=== PATIENT | female | born 1970 | race Caucasian/White ===

== ENCOUNTER 2016-10-02 16:01 | Emergency (ER) | payer BC, OTHER ==
--- NOTE | 2016-10-02 16:05 | PDOC ---
Rapid Medical Evaluation Time Seen by Provider: 10/02/16 16:02 Medical Evaluation: Allergies Allergy/AdvReac Type Severity Reaction Status Date / Time Penicillins Allergy Verified 10/02/16 16:02 10/02/16 16:03 I have performed a brief in-person evaluation of this patient. The patient presents with a chief complaint of: rt back pain radiating down rt leg x 2 days. went to urgent care clinic who gave medications with minimal relief. Hx sciatica w/ similar discomfort Pertinent physical exam findings: vss. ambulatory. I have ordered the following: none The patient will proceed to fast track for further evaluation.
[2016-10-02 16:06] VITALS: BP 156/49; PULSE 69; TEMP 97.4; BMI 35.9
[2016-10-02] MEDS ORDERED: KETOROLAC TROMETHAMINE 60 MG/2 ML VIAL IM ONE (16:41)
--- NOTE | 2016-10-02 16:52 | PDOC ---
History of Present Illness - General Chief Complaint: Back Pain Stated Complaint: BACK PAIN Time Seen by Provider: 10/02/16 16:02 History Source: Patient Exam Limitations: No Limitations - History of Present Illness Initial Comments: 10/02/16 16:45 45 yr female history of low back pain with sciatica right side states the past 6 days after cleaning and sweeping has low back pain that is not improving with medrol dose pack and skelaxin. Pt denies urine or bowel dysfunction no leg numbness or tingling. Pt is ambulatory. no abd pain no diarrhea. Severity: reports: mild Pain Location: reports: back Modifying Factors: improves with: None Loss of Consciousness: no loss of consciousness Associated Symptoms (Fall): denies symptoms Past History - Past Medical History Allergies/Adverse Reactions: Allergies Allergy/AdvReac Type Severity Reaction Status Date / Time Penicillins Allergy Verified 10/02/16 16:02 Home Medications: Ambulatory Orders Diazepam [Valium] 2 mg PO TID PRN #12 tablet MDD 6mg 10/02/16 Metaxalone [Skelaxin] 400 mg PO HS 10/02/16 Methylprednisolone [Medrol Dose Wes] 4 mg PO ASDIR 10/02/16 Oxycodone HCl/Acetaminophen [Percocet 5-325 mg Tablet] 1 tab PO Q6H PRN #8 tablet MDD 4 10/02/16 Diabetes: Yes HTN: Yes - Psycho/Social/Smoking Cessation Hx Anxiety: No Suicidal Ideation: No Smoking History: Never smoked Have you smoked in the past 12 months: No Information on smoking cessation initiated: No Hx Alcohol Use: No Drug/Substance Use Hx: No Substance Use Type: None Trauma Specific PMHX - Complaint Specific PMHX Arthritis: No Back Injury: No Neck Injury: No Hx Sacro Iliac Joint Dysfunction: No Review of Systems - Review of Systems Able to Perform ROS?: Yes Is the patient limited Russian proficient: No Constitutional: No: Symptoms Reported HEENTM: No: Symptoms Reported Respiratory: No: Symptoms reported Cardiac (ROS): No: Symptoms Reported ABD/GI: No: Symptoms Reported : No: Symptoms Reported Musculoskeletal: Yes: See HPI, Back Pain *Physical Exam - Vital Signs Last Vital Signs Temp Pulse Resp BP Pulse Ox 97.4 F L 69 18 156/49 100 10/02/16 16:03 10/02/16 16:03 10/02/16 16:03 10/02/16 16:03 10/02/16 16:03 - Physical Exam General Appearance: Yes: Nourished, Appropriately Dressed HEENT: positive: EOMI, LATOSHA Neck: positive: Supple. negative: Tender Respiratory/Chest: positive: Lungs Clear, Normal Breath Sounds Cardiovascular: positive: Regular Rhythm, Regular Rate Gastrointestinal/Abdominal: positive: Normal Bowel Sounds, Soft. negative: Tender Lymphatic: negative: Adenopathy Musculoskeletal: positive: Normal Inspection, Other (point tenderness to right buttock ) Extremity: positive: Normal Capillary Refill, Normal Inspection, Normal Range of Motion Integumentary: positive: Normal Color, Dry, Warm Neurologic: positive: Fully Oriented, Alert, Normal Mood/Affect, Normal Response , Motor Strength 5/5 ED Treatment Course - RADIOLOGY Radiology Studies Ordered: Category Date Time Status SPINE-LUMBAR ONLY [RAD] Stat Radiology 10/02/16 16:42 Ordered Medical Decision Making - Medical Decision Making 10/02/16 16:49 cc: lower back pain for one week radiates to right buttock and down leg pain with sitting to standing nv intact no saddle anesthesia no numbness or tingling to legs will get xray ua toradol valium refer to Dr. Fragoso 10/02/16 16:54 ua is negative no evidence of blood or infection wet read is negative for fracture will notify pt if any changes when the radiologist reads the xray . pt states she feels better after toradol. pt has steady gait. 10/02/16 18:03 10/02/16 18:04 *DC/Admit/Observation/Transfer Diagnosis at time of Disposition: Sciatica Qualifiers: Laterality: right Qualified Code(s): M54.31 - Sciatica, right side - Discharge Dispostion Disposition: HOME Condition at time of disposition: Good - Prescriptions Prescriptions: Oxycodone HCl/Acetaminophen [Percocet 5-325 mg Tablet] 1 tab PO Q6H PRN #8 tablet MDD 4 PRN Reason: Severe Pain Diazepam [Valium] 2 mg PO TID PRN #12 tablet MDD 6mg PRN Reason: Muscle Spasms - Referrals Referrals: Angeline Mcnally MD [Primary Care Provider] - Mitchel Fragoso MD [Staff Physician] - - Patient Instructions Additional Instructions: take the valium as directed for muscle spasm take percocet for SEVERE pain as needed otherwise you can take motrin 800mg every 6hrs (over the counter ) for pain with the valium DO NOT TAKE VALIUM AND PERCOCET TOGETHER, DO NOT TAKE SKELAXIN IF YOU TAKE VALIUM AND PERCOCET apply warm compresses to lower back as needed every 3hrs for 20 minutes follow with the orthopedist Dr. Fragoso for follow up
[2016-10-02] MEDS ORDERED: KETOROLAC TROMETHAMINE 60 MG/2 ML VIAL ONE (17:11)
[2016-10-02 17:39] LABS: URINE APPEARANCE CLEAR; URINE BILIRUBIN NEGATIVE (NEGATIVE); URINE BLOOD NEGATIVE (NEGATIVE); URINE COLOR STRAW; URINE GLUCOSE (UA) NEGATIVE (NEGATIVE); URINE KETONE NEGATIVE (NEGATIVE); URINE LEUK ESTERASE NEGATIVE (NEGATIVE); URINE NITRITE NEGATIVE (NEGATIVE); URINE PROTEIN NEGATIVE (NEGATIVE); URINE UROBILINOGEN NEGATIVE E.U./dl (0.2-1.0)
[2016-10-02] MEDS ORDERED: diazePAM 2 MG TABLET PO ONE (17:58)
[2016-10-02] MEDS ORDERED: diazePAM 2 MG TABLET ONE (18:00)
== END 2016-10-02 18:01 | disposition home or self-care (01) ==
LOC: JERFT 16:01
PROC: 3E0233Z Introduction of Anti-inflammatory into Muscle, Percutaneous Approach (ICD-10-PCS; principal; 2016-10-02)
DX: M54.41 Lumbago with sciatica, right side (principal)
CPT/HCPCS: 72100-TC; 81003; 84703; 99281-25

== ENCOUNTER 2018-10-21 18:47 | Emergency (ER) | payer BC, OTHER ==
[2018-10-21] MEDS ORDERED: ACETAMINOPHEN 500 MG TABLET (FP) PO ONE ×2 (18:51→20:29)
--- NOTE | 2018-10-21 18:51 | PDOC ---
Rapid Medical Evaluation Time Seen by Provider: 10/21/18 18:49 Medical Evaluation: Allergies Allergy/AdvReac Type Severity Reaction Status Date / Time Penicillins Allergy Verified 10/02/16 16:02 10/21/18 18:49 I have performed a brief in-person evaluation of this patient. The patient presents with a chief complaint of: L sided headache x 2 weeks worse today relieved with Advil last night Pertinent physical exam findings:No gross deficits I have ordered the following:U preg and Tylenol The patient will proceed to the ED for further evaluation. Discharge Disposition - Diagnosis Headache - Referrals - Patient Instructions - Post Discharge Activity
[2018-10-21 18:55] VITALS: BMI 34.8
[2018-10-21] MEDS ORDERED: LABETALOL HCL 100 MG TABLET (FP) PO ONE (19:53)
--- NOTE | 2018-10-21 19:59 | PDOC ---
History of Present Illness - General Chief Complaint: Blood Pressure Problem Stated Complaint: HEADACE/SINCE ONE WEEK AGO Time Seen by Provider: 10/21/18 18:49 History Source: Patient Exam Limitations: No Limitations - History of Present Illness Initial Comments: 10/21/18 19:55 HISTORY OF PRESENT ILLNESS: 47-year-old woman past medical history of hypertension and MS who presents to the emergency department for evaluation of left-sided headache which has been waxing and waning over the past 7 days. Patient reports the pain comes on gradually with slow crescendo maxing out at 7/ 10. Patient has been taking ibuprofen which has helped alleviate the headache. Patient reports she ran out of her antihypertensives approximately one month ago. Patient is contact her primary doctor who gave her a prescription to continue her medications until follow-up next week. Patient reports she's been taking her medicines daily as prescribed. She denies any blurry vision, dizziness, nausea, vomiting, chest pain, shortness of breath, leg swelling. No recent travel or sick contacts. PAST MEDICAL HISTORY: see HPI SURGICAL HISTORY: Denies ALLERGIES: PCN REVIEW OF SYSTEMS General/Constitutional: Denies fever or chills. Denies weakness, weight change. HEENT: Denies change in vision. Denies ear pain or discharge. Denies sore throat. Cardiovascular: Denies chest pain or shortness of breath. Respiratory: Denies cough, wheezing, or hemoptysis. Gastrointestinal: Denies nausea, vomiting, diarrhea or constipation. Denies rectal bleeding. Genitourinary: Denies dysuria, frequency, or change in urination. Musculoskeletal: Denies joint or muscle swelling or pain. Denies neck or back pain. Skin and breasts: Denies rash or easy bruising. Neurologic: see HPI Psychiatric: Denies depression or anxiety. Endocrine: Denies increased thirst. Denies abnormal weight change. Hematologic/Lymphatic: Denies anemia, easy bleeding, or history of blood clots. Allergic/Immunologic: Denies hives or skin allergy. Denies latex allergy. PHYSICAL EXAM General Appearance: Well-appearing, appropriately dressed. No apparent distress , no intoxication. HEENT: EOMI, PERRLA, normal ENT inspection, normal voice, TMs normal, pharynx normal. No conjunctival pallor. No photophobia, scleral icterus. Neck: Supple. Trachea midline. No tenderness, rigidity, carotid bruit, stridor , lymphadenopathy, or thyromegaly. Respiratory/Chest: Lungs CTAB. No shortness of breath, chest tenderness, respiratory distress, accessory muscle use. No crackles, rales, rhonchi, stridor , wheezing, dullness Cardiovascular: RRR. S1, S2. No JVD, murmur, bradycardia, tachycardia. Vascular Pulses: Dorsalis-Pedis (R): 2+, Dorsalis-Pedis (L): 2+ Gastrointestinal/Abdominal: Normal bowel sounds. Abdomen soft, non-distended. No tenderness or rebound tenderness. No organomegaly, pulsatile mass, guarding, hernia, hepatomegaly, splenomegaly. Lymphatic: No adenopathy, tenderness. Musculoskeletal/Extremities: Normal inspection. FAROM of all extremities, normal capillary refill. Pelvis Stable. No CVA tenderness. No tenderness to extremities, pedal edema, swelling, erythema or deformity. Integumentary: Appropriate color, dry, warm. No cyanosis, erythema, jaundice or rash Neurologic: telegraphic service dispatcher II-XII intact. Fully oriented, alert. Appropriate mood/affect. Motor strength 5/5. No appreciable EOM palsy, facial droop or sensory deficit. Gait steady. Past History - Past Medical History Allergies/Adverse Reactions: Allergies Allergy/AdvReac Type Severity Reaction Status Date / Time Penicillins Allergy Verified 10/21/18 18:50 Home Medications: Ambulatory Orders Lisinopril [Prinivil] 10 mg PO DAILY 10/21/18 Diabetes: Yes HTN: Yes - Suicide/Smoking/Psychosocial Hx Smoking History: Never smoked Have you smoked in the past 12 months: No Hx Alcohol Use: No Drug/Substance Use Hx: No Substance Use Type: None *Physical Exam - Vital Signs Last Vital Signs Temp Pulse Resp BP Pulse Ox 98.4 F 78 18 192/74 H 100 10/21/18 18:51 10/21/18 18:51 10/21/18 18:51 10/21/18 18:51 10/21/18 18:51 Moderate Sedation - Procedure Monitoring Vital Signs: Procedure Monitoring Vital Signs Temperature 98.4 F 10/21/18 18:51 Pulse Rate 78 10/21/18 18:51 Respiratory Rate 18 10/21/18 18:51 Blood Pressure 192/74 H 10/21/18 18:51 O2 Sat by Pulse Oximetry (%) 100 10/21/18 18:51 ED Treatment Course - LABORATORY CBC & Chemistry Diagram: 10/21/18 20:42 10/21/18 21:17 Medical Decision Making - Medical Decision Making 10/21/18 19:59 A/P: 47-year-old woman with intermittent headaches for one week Blood pressure 192/74 upon arrival EKG Labs including cardiac profile and ESR Urine CT of the head Labetalol 100 mg orally now 10/21/18 23:47 CT of the head as read by Dr. Garcia: No CT evidence of acute intracranial pathology. ESR 7 Random glucose 277. 2+ glucose noted in the urine. Patient informed of these results and told she may be diabetic. Patient reports she is supposed to be taking metformin but does so intermittently. Patient counseled on the importance of treating diabetes and she has verbalized understanding to continue taking her medication. Patient was instructed to discuss with her primary doctor for evaluation going forward. Patient's blood pressure is 138/74. She denies pain at this time. I discussed the physical exam findings, ancillary test results and final diagnoses with the patient. I answered all of the patient's questions. The patient was satisfied with the care received and felt comfortable with the discharge plan and treatment plan. The patient will call their primary care physician within 24 hours to arrange follow-up and will return to the Emergency Department with any new, persistent or worsening symptoms. *DC/Admit/Observation/Transfer Diagnosis at time of Disposition: Headache Qualifiers: Headache type: unspecified Headache chronicity pattern: acute headache Intractability: not intractable Qualified Code(s): R51 - Headache Hypertension Qualifiers: Hypertension type: essential hypertension Qualified Code(s): I10 - Essential ( primary) hypertension - Discharge Dispostion Disposition: HOME Condition at time of disposition: Fair Decision to Admit order: No - Referrals - Patient Instructions Printed Discharge Instructions: DI for High Blood Pressure Additional Instructions: Take Tylenol or Motrin as needed for headaches. Keep a diary of all food to eat and activities performed prior to headaches starting. Make an appointment with your primary doctor for reevaluation within the next week. Return to emergency department for worsening headache, blurry vision, dizziness , nausea, vomiting or any other concerns. Thank you very much for for choosing us to provide emergent health care needs. - Post Discharge Activity Forms/Work/School Notes: Back to Work
[2018-10-21 20:23] LABS: PH,URINE 6.5 (5.0-8.0); URINE APPEARANCE CLEAR; URINE BILIRUBIN NEGATIVE (<2.0 mg/dL); URINE COLOR YELLOW; URINE GLUCOSE (UA) 2+ (NEGATIVE); URINE KETONE NEGATIVE (NEGATIVE); URINE LEUK ESTERASE NEGATIVE (NEGATIVE); URINE NITRITE NEGATIVE (NEGATIVE); URINE PROTEIN NEGATIVE (NEGATIVE); URINE UROBILINOGEN 0.2 mg/dL (0.2-1.0)
[2018-10-21] MEDS ORDERED: LABETALOL HCL 100 MG TABLET (FP) ONE (20:25)
[2018-10-21] MEDS ORDERED: ACETAMINOPHEN 325 MG TABLET (FP) ONE (20:25)
[2018-10-21 20:52] LABS: EOS % 1.7 % (0-4.5); HEMATOCRIT 42.4 % (32.4-45.2); LYMPH % 24.8 % (8-40); MEAN CELL VOLUME 78.8 fl (80-96); MEAN PLT VOLUME 10.4 fl (7.5-11.1); MONO % 4.9 % (3.8-10.2); NEUT % 67.6 % (42.8-82.8); PLATELET COUNT 356 K/MM3 (134-434); RBC 5.38 M/mm3 (3.60-5.2); RDW 16.6 % (11.6-15.6); WHITE BLOOD COUNT 10.3 K/mm3 (4.0-10.0)
[2018-10-21 21:49] LABS: ALBUMIN 3.8 g/dl (3.4-5.0); ALK PHOS 92 U/L (45-117); ANION GAP 9 MMOL/L (8-16); BILIRUBIN,TOTAL 0.4 mg/dL (0.2-1); BLOOD UREA NITROGEN 11 mg/dL (7-18); CALCIUM 8.8 mg/dL (8.5-10.1); CHLORIDE 99 mmol/L (98-107); CO2 25 mmol/L (21-32); CREATININE 0.9 mg/dL (0.55-1.3); GLUCOSE,RANDOM 277 mg/dL (74-106); POTASSIUM 4.1 mmol/L (3.5-5.1); SGOT/AST 22 U/L (15-37); SGPT/ALT 37 U/L (13-61); SODIUM 133 mmol/L (136-145); TOT PROT 7.2 g/dl (6.4-8.2)
[2018-10-21 22:56] VITALS: BP 138/74; PULSE 68; TEMP 98.3
--- NOTE | 2018-10-22 16:36 | EKG ---
Test Reason : Blood Pressure : / mmHG Vent. Rate : 076 BPM Atrial Rate : 076 BPM P-R Int : 156 ms QRS Dur : 104 ms QT Int : 416 ms P-R-T Axes : 040 001 042 degrees QTc Int : 468 ms NORMAL SINUS RHYTHM INCOMPLETE RIGHT BUNDLE BRANCH BLOCK MINIMAL VOLTAGE CRITERIA FOR LVH, MAY BE NORMAL VARIANT BORDERLINE ECG NO PREVIOUS ECGS AVAILABLE Confirmed by STEVE MANCINI MD ([id number]) on 10/22/2018 4:36:28 PM Referred By: Confirmed By:STEVE MANCINI MD
== END 2018-10-22 00:27 | disposition home or self-care (01) ==
LOC: JER 18:47
DX: R51 Headache (principal); I10 Essential (primary) hypertension; E11.9 Type 2 diabetes mellitus without complications; G35 Multiple sclerosis
CPT/HCPCS: 36415; 70450-TC; 80053; 81003; 84484; 84703; 85025; 85651; 87086; 93005; 93010; 99283-25

== ENCOUNTER 2020-08-27 04:34 | Day surgery (SDC) | payer BC, OTHER ==
[2020-08-26 12:24] VITALS: BMI 35.4
[2020-08-27] MEDS ORDERED: SUCCINYLCHOLINE CHLORIDE 200 MG/10 ML SYRINGE ONE (07:22)
[2020-08-27] MEDS ORDERED: PROPOFOL 20 ML ONE ×3 (07:22→08:11)
[2020-08-27] MEDS ORDERED: MIDAZOLAM HCL 2 MG/2 ML SINGLE DOSE VIAL ONE (07:22)
[2020-08-27] MEDS ORDERED: DEXAMETHASONE SOD PHOSPHATE 4 MG/1 ML VIAL ONE (07:22)
[2020-08-27] MEDS ORDERED: LIDOCAINE HCL/PF 2% SDV 5ML VIAL ONE (07:22)
[2020-08-27] MEDS ORDERED: ONDANSETRON 4 MG/2 ML VIAL ONE (07:22)
[2020-08-27 07:27] LABS: ALBUMIN 3.8 g/dl (3.4-5.0)
[2020-08-27 07:29] LABS: BILIRUBIN,DIRECT 0.2 mg/dL (0.0-0.2)
[2020-08-27 07:31] LABS: BILIRUBIN,TOTAL 0.8 mg/dL (0.2-1); TOT PROT 7.2 g/dl (6.4-8.2)
[2020-08-27] MEDS ORDERED: IBUPROFEN 800 MG/8 ML IJ IVPB PRN (07:47)
[2020-08-27] MEDS ORDERED: ONDANSETRON 4 MG/2 ML VIAL IVPUSH PRN (07:47)
[2020-08-27] MEDS ORDERED: IBUPROFEN 600 MG TABLET (FP) PO PRN (07:47)
[2020-08-27] MEDS ORDERED: oxyCODONE HCL 5 MG TABLET PO PRN (07:47)
[2020-08-27] MEDS ORDERED: ELECTROLYTE-148 SOLN 1,000 ML IV SCH (08:00)
[2020-08-27] MEDS ORDERED: LACTATED RINGERS SOLUTION 1,000 ML IV SCH (08:30)
[2020-08-27 09:53] VITALS: PULSE 86
[2020-08-27 11:14] VITALS: BP 137/80; TEMP 96.9
== END 2020-08-27 12:47 | disposition home or self-care (01) ==
LOC: JASU-SURG 04:34
PROVIDERS: ATTEND Obstetrics & Gynecology
PROC: 0UJD8ZZ Inspection of Uterus and Cervix, Via Natural or Artificial Opening Endoscopic (ICD-10-PCS; 2020-08-27)
PROC: 0UB97ZX Excision of Uterus, Via Natural or Artificial Opening, Diagnostic (ICD-10-PCS; principal; 2020-08-27 07:30)
PROC: 0UDB7ZX Extraction of Endometrium, Via Natural or Artificial Opening, Diagnostic (ICD-10-PCS; 2020-08-27 07:30)
DX: N92.0 Excessive and frequent menstruation with regular cycle (principal); N84.0 Polyp of corpus uteri; I10 Essential (primary) hypertension; E11.9 Type 2 diabetes mellitus without complications
CPT/HCPCS: 36415; 71046-TC-FY; 80076; 82962; 84703; 94760